=== PATIENT | female | born 1980 | race Two or more races ===

== ENCOUNTER → 2020-03-23 | Outpatient (CLI) | payer OTHER ==
[2020-03-23 07:54] LABS: Basophils # (auto) 0 10 ^3/uL (0-0.2); Basophils % (auto) 0.5 % (0.0-2.0); Eosinophils # (auto) 0.1 10 ^3/uL (0-0.8); Eosinophils % (auto) 1.9 % (0.0-7.0); Hematocrit 41.3 % (36.0-46.0); Hemoglobin 13.9 g/dL (12.2-16.2); Lymphocytes # (auto) 1.3 10 ^3/uL (0.4-5.4); Lymphocytes % (auto) 30.2 % (10.0-50.0); Mean Corpuscular Hemoglobin 29.6 pg (28.0-32.0); Mean Corpuscular Hgb Conc. 33.6 g/dL (32.0-36.0); Mean Corpuscular Volume 87.9 fL (80.0-100.0); Monocytes # (auto) 0.2 10 ^3/uL (0-1.3); Monocytes % (auto) 5.7 % (0.0-12.0); Neutrophils # (auto) 2.6 10 ^3/uL (1.6-8.6); Neutrophils % (auto) 61.7 % (37.0-80.0); Platelet Count (auto) 174 10^3/uL (140-450); Red Cell Distribution Width 13.9 % (11.8-14.3); Urine Bacteria FEW /hpf (None Seen); Urine Blood Negative /uL (Negative); Urine Mucus FEW (None Seen); Urine Specific Gravity 1.028 (1.001-1.035); Urine WBC 3 /hpf (0 - 5); White Blood Cell 4.3 10^3/uL (4.4-10.8)
[2020-03-23 08:20] LABS: Albumin 3.5 g/dL (3.4-5.0); Calcium 8.7 mg/dL (8.5-10.1); Potassium 4.6 mmol/L (3.5-5.1)
[2020-03-23 08:26] LABS: BUN/Creatinine Ratio 20.8; Bilirubin, Total 0.4 mg/dL (0.2-1.0); Total Protein 6.8 g/dL (6.4-8.2)
[2020-03-23 08:29] LABS: Beta HCG, Quantitative < 1 mlU/mL (1-3)
[2020-03-23 08:33] LABS: Free T4 (Free Thyroxine) 0.94 ng/dL (0.89-1.76)
[2020-03-23 08:34] LABS: Follicle Stimulating Hormone 28.68 IU/L (SEE BELOW)
== END | disposition home or self-care (01) ==
LOC: LAB 07:32
PROVIDERS: ATTEND Internal Medicine
DX: N91.1 Secondary amenorrhea (principal); R61 Generalized hyperhidrosis
CPT/HCPCS: 36415; 80053; 80061; 81001; 83001; 84439; 84443; 84702; 85025; 85652

== ENCOUNTER → 2020-08-05 | Outpatient (CLI) | payer OTHER ==
[2020-08-05 10:20] LABS: Basophils # (auto) 0 10 ^3/uL (0-0.2); Basophils % (auto) 0.2 % (0.0-2.0); Eosinophils # (auto) 0.1 10 ^3/uL (0-0.8); Eosinophils % (auto) 1.2 % (0.0-7.0); Hematocrit 40.6 % (36.0-46.0); Hemoglobin 14.1 g/dL (12.2-16.2); Lymphocytes # (auto) 1.3 10 ^3/uL (0.4-5.4); Lymphocytes % (auto) 22.8 % (10.0-50.0); Mean Corpuscular Hemoglobin 30.9 pg (28.0-32.0); Mean Corpuscular Hgb Conc. 34.9 g/dL (32.0-36.0); Mean Corpuscular Volume 88.8 fL (80.0-100.0); Monocytes # (auto) 0.3 10 ^3/uL (0-1.3); Monocytes % (auto) 5.7 % (0.0-12.0); Neutrophils # (auto) 4.1 10 ^3/uL (1.6-8.6); Neutrophils % (auto) 70.1 % (37.0-80.0); Nucleated Red Blood Cells % 0.1 %; Platelet Count (auto) 202 10^3/uL (140-450); Red Blood Cells 4.57 10^6/uL (4.0-5.20); Red Cell Distribution Width 13.3 % (11.8-14.3); White Blood Cell 5.9 10^3/uL (4.4-10.8)
[2020-08-05 10:25] LABS: Albumin 3.5 g/dL (3.4-5.0); Calcium 9.7 mg/dL (8.5-10.1); Potassium 4.1 mmol/L (3.5-5.1)
[2020-08-05 10:31] LABS: BUN/Creatinine Ratio 18.6; Bilirubin, Total 0.5 mg/dL (0.2-1.0); Total Protein 7.3 g/dL (6.4-8.2)
== END | disposition home or self-care (01) ==
LOC: LAB 09:33
PROVIDERS: ATTEND Internal Medicine
DX: F41.9 Anxiety disorder, unspecified (principal); R11.0 Nausea
CPT/HCPCS: 36415; 80053; 84439; 84443; 85025